=== PATIENT | female | born 1995 | race Caucasian/White ===

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

== ENCOUNTER → 2017-05-01 | Outpatient (CLI) | payer BC ==
[~2017-05-01] MED LIST changes: -AGM875 PO; -CEPH500C PO; +CITA20TA9 PO; -LPRIUNK
[2017-05-04 13:34] LABS: CHLAMYDIA TRACH RNA*** NOT DETECTED (NOT DETECTED); GC (NEIS GONORRHOEAE)RNA** NOT DETECTED (NOT DETECTED)
== END | disposition home or self-care (01) ==
LOC: C.LABSPEC 15:33
PROVIDERS: ATTEND Physician Assistant
DX: Z01.419 Encounter for gynecological examination (general) (routine) without abnormal findings (principal)

== ENCOUNTER → 2017-05-02 | Outpatient (CLI) | payer BC | END | disposition home or self-care (01) | LOC: C.LAB1850 10:01 | PROVIDERS: ATTEND Physician Assistant | DX: N91.2 Amenorrhea, unspecified (principal) ==

== ENCOUNTER → 2017-10-21 | Outpatient (CLI) | payer OTHER ==
[2017-10-21 12:19] LABS: HEMATOCRIT 40.1 % (37-47); HEMOGLOBIN 13.1 g/dL (12.0-16.0); MEAN CELL VOLUME 90.7 fL (80-100); MEAN CORPUSCULAR HEMOGLOBIN 29.6 pg (25-34); MEAN CORPUSCULAR HGB CONC 32.7 g/dl (32-36); MEAN PLATELET VOLUME 10.4 fL (7.4-10.4); PLATELET COUNT 378 K/uL (130-400); RED CELL DISTRIBUTION WIDTH CV 13.1 % (11.5-14.5); RED CELL DISTRIBUTION WIDTH SD 43.1 fL (36.4-46.3); WHITE BLOOD COUNT 9.18 K/uL (4.8-10.8)
[2017-10-21 12:47] LABS: FOLLICLE STIMULAT HORMONE 6.33 IU/L; LUTEINIZING HORMONE 3.93 IU/L; PROLACTIN 8.47 ng/mL
== END | disposition home or self-care (01) ==
LOC: C.LAB1850 09:45
PROVIDERS: ATTEND Physician Assistant
DX: N92.6 Irregular menstruation, unspecified (principal)

== ENCOUNTER 2017-11-07 10:30 | Emergency (ER) | payer OTHER ==
[~2017-11-07] VITALS: Ht 154.9 cm; Wt 145.5 kg
[2017-11-07 10:40] VITALS: TEMP 37; Ht 154.9 cm; Wt 145.5 kg
[2017-11-07] MEDS ORDERED: SODIUM CHLORIDE 0.9% 1000ML 1,000 ML IV STA (10:55)
[2017-11-07] MEDS ORDERED: LISD20CA PO (11:19)
[2017-11-07] MEDS ORDERED: FLUO20CA35 PO (11:19)
[2017-11-07] MEDS ORDERED: METF-384 PO (11:19)
[2017-11-07 11:23] LABS: BASO % 0.4 %; BASO ABS # 0.04 K/uL (0-0.2); EOS % 1.9 %; EOS ABS # 0.19 K/uL (0-0.5); HEMATOCRIT 40.3 % (37-47); HEMOGLOBIN 13.4 g/dL (12.0-16.0); IG# 0.03 K/uL (0.00-0.02); LYMPH % 22.9 %; LYMPH ABS # 2.32 K/uL (1.2-3.4); MEAN CELL VOLUME 89.8 fL (80-100); MEAN CORPUSCULAR HEMOGLOBIN 29.8 pg (25-34); MEAN CORPUSCULAR HGB CONC 33.3 g/dl (32-36); MEAN PLATELET VOLUME 10.2 fL (7.4-10.4); MONO % 6.6 %; MONO ABS # 0.67 K/uL (0.11-0.59); NEUT % 67.9 %; NEUT ABS # 6.86 K/uL (1.4-6.5); PLATELET COUNT 419 K/uL (130-400); RED CELL DISTRIBUTION WIDTH CV 13.1 % (11.5-14.5); RED CELL DISTRIBUTION WIDTH SD 43.1 fL (36.4-46.3); WHITE BLOOD COUNT 10.11 K/uL (4.8-10.8)
[2017-11-07 11:34] LABS: PTT PATIENT 25.2 SECONDS (21.0-31.0)
[2017-11-07 11:39] LABS: BLOOD UREA NITROGEN 17 mg/dl (7-18); CALCIUM 9.1 mg/dl (8.5-10.1); CARBON DIOXIDE 26 mmol/L (21-32); GLUCOSE 92 mg/dl (70-99); POTASSIUM 3.9 mmol/L (3.5-5.1); SODIUM 136 mmol/L (136-145)
[2017-11-07] MEDS ORDERED: KETOROLAC TROMETHAMINE 30 MG/ML VIAL IV STA (12:52)
--- NOTE | 2017-11-07 13:05 | DIAGNOSTIC IMAGING REPORT ---
PELVIC ULTRASOUND CLINICAL HISTORY: vaginal bleeding for 5 days 1 pad per hr bleeding COMPARISON STUDY: None. TECHNIQUE: Transabdominal and transvaginal sonography of the pelvis was performed. FINDINGS: This exam is compromised by suboptimal penetration. The uterus measures 7.6 x 4.1 x 4.2 cm. Endometrium measures 1.4 cm in thickness. The right ovary was not visualized. The left ovary measured 2.7 x 2.6 x 3.3 cm. There is color flow within the left ovary. A dominant follicle within the left ovary measuring 2.6 cm was noted. IMPRESSION: 1. Endometrial thickness of 1.4 cm which could be correlated with menstrual cycle. 2. Study compromised by suboptimal penetration. Nonvisualization of the right ovary. Electronically signed by: Camron Solomon M.D. 11/07/2017 1:03 PM Dictated Date/Time: 11/07/2017 1:02 PM
[2017-11-07 14:55] VITALS: BP 149/99; PULSE 98; O2SAT 98
--- NOTE | 2017-11-07 17:06 | EMERGENCY ROOM VISIT NOTE ---
History Report prepared by Dinah: Reese Lynch Under the Supervision of: Dr. Cash Miguel M.D. First contact with patient: 10:47 Chief Complaint: VAGINAL BLEEDING Stated Complaint: VAGINAL BLEEDING AND CRAMPING, LIGHT HEADED History of Present Illness The patient is a 21 year old female who presents to the Emergency Room with complaints of worsening vaginal bleeding beginning five days ago. She also complains of abdominal "cramping". Her pain radiates into her lower back. The patient states that she has been having constant vaginal bleeding for nearly a month (since Sep 17) until she saw her OBGYN last week. She was started on a Norethindrone taper which she finished five days ago. Her bleeding returned and worsened immediately after finishing the taper. The patient states that she is going through about a pad per hour. She was recently tested for STD, and both of which were negative. Source of History: patient Onset: About a month ago Position: other (vagina) Symptom Intensity: A pad per hour. Quality: other (bleeding) Timing: worsening Associated Symptoms: + abdominal pain ("cramping"), + back pain (low) Review of Systems See HPI for pertinent positives and negatives. A total of ten systems were reviewed and were otherwise negative. Past Medical & Surgical Medical Problems: (1) Depression (2) PCOS (polycystic ovarian syndrome) Family History FH: cancer FH: diabetes mellitus FH: hypertension Social History Smoking Status: Never Smoker Alcohol Use: none Marital Status: single Housing Status: lives with family Occupation Status: employed Current/Historical Medications Scheduled Fluoxetine (Prozac), 20 MG PO DAILY Lisdexamfetamine Dimesylate (Vyvanse), 20 MG PO DAILY Metformin Hcl (Glucophage), 1,000 MG PO BID Allergies Coded Allergies: No Known Allergies (Unverified , NONE, 11/07/17) Physical Exam Vital Signs Date Time Temp Pulse Resp B/P (MAP) Pulse Ox O2 Delivery O2 Flow Rate FiO2 11/07/17 14:55 98 20 149/99 98 11/07/17 13:55 106 20 167/85 98 Room Air 11/07/17 12:46 96 20 175/124 93 Room Air 11/07/17 10:40 37.0 96 18 148/92 96 Room Air Physical Exam Physical Exam GENERAL: She is oriented to person, place, and time. She appears well- developed and well-nourished. She does not appear distressed. ____ HENT: Exam performed. Head: Normocephalic and atraumatic. Right Ear: External ear normal. No mastoid tenderness. Left Ear: External ear normal. No mastoid tenderness. Mouth/Throat: The oropharynx is clear and moist. No trismus in the jaw. No dental abscesses or uvula swelling. No oropharyngeal exudate or tonsillar abscesses. ____ EYES: Conjunctivae and EOM are normal. Pupils are equal, round, and reactive to light. Right eye exhibits no discharge. Left eye exhibits no discharge. No scleral icterus. ____ NECK: Normal range of motion. Neck supple. No JVD present. No spinous process tenderness present. No carotid bruit present. No rigidity. No tracheal deviation and normal range of motion present. No Brudzinski's sign and no Kernig 's sign noted. ____ CV: Normal rate, regular rhythm, normal heart sounds and intact distal pulses. There is no peripheral edema. Palpable radial pulses bue. ____ PULM/CHEST: Effort normal and breath sounds normal. No respiratory distress. No stridor. She has no wheezes. She has no rales. Chest Wall: She exhibits no tenderness. ____ ABD: The abdomen is soft and obese (limiting exam). Bowel sounds are normal. She has no distension. There is suprapubic, RLQ and LLQ tenderness on palpation. There is no rebound, no guarding, no Cee's sign and no tenderness at McBurney's point. Rovsig negative MUSC/SKEL: Normal range of motion. There is no peripheral edema, tenderness or deformity. LYMPH: No cervical adenopathy. ____ NEURO: She is alert and oriented to person, place, and time. She has normal strength. No cranial nerve deficit or sensory deficit. Coordination and gait normal. GCS eye subscore is 4. GCS verbal subscore is 5. GCS motor subscore is 6. Cerebellar tests wnl. ____ SKIN: Skin is warm and dry. She is not diaphoretic. ____ PSYCH: She has a normal mood and affect. Her behavior is normal. Judgment and thought content normal. ____ Medical Decision & Procedures ER Provider Diagnostic Interpretation: Radiology results as stated below per my review and radiologist interpretation: PELVIC ULTRASOUND FINDINGS: This exam is compromised by suboptimal penetration. The uterus measures 7.6 x 4.1 x 4.2 cm. Endometrium measures 1.4 cm in thickness. The right ovary was not visualized. The left ovary measured 2.7 x 2.6 x 3.3 cm. There is color flow within the left ovary. A dominant follicle within the left ovary measuring 2.6 cm was noted. IMPRESSION: 1. Endometrial thickness of 1.4 cm which could be correlated with menstrual cycle. 2. Study compromised by suboptimal penetration. Nonvisualization of the right ovary. Electronically signed by: Camron Solomon M.D. 11/07/2017 1:03 PM Laboratory Results 11/07/17 11:15 Red Blood Count 4.49, Mean Corpuscular Volume 89.8, Mean Corpuscular Hemoglobin 29.8, Mean Corpuscular Hemoglobin Concent 33.3, Mean Platelet Volume 10.2, Neutrophils (%) (Auto) 67.9, Lymphocytes (%) (Auto) 22.9, Monocytes (%) (Auto) 6.6, Eosinophils (%) (Auto) 1.9, Basophils (%) (Auto) 0.4, Neutrophils # (Auto) 6.86, Lymphocytes # (Auto) 2.32, Monocytes # (Auto) 0.67, Eosinophils # (Auto) 0.19, Basophils # (Auto) 0.04 11/07/17 11:15 Test 11/07/17 11:10 11/07/17 11:15 Urine Color RED Urine Appearance SL CLOUDY (CLEAR) Urine pH 5.5 (4.5-7.5) Urine Specific [place] >= 1.030 (1.000-1.030) Urine Protein 1+ (NEG) Urine Glucose (UA) NEG (NEG) Urine Ketones NEG (NEG) Urine Occult Blood 3+ (NEG) Urine Nitrite NEG (NEG) Urine Bilirubin NEG (NEG) Urine Urobilinogen NEG (NEG) Urine Leukocyte Esterase TRACE (NEG) Urine RBC >30 /hpf (0-4) Urine WBC 1-5 /hpf (0-5) Urine Epithelial Cells 0-5 /lpf (0-5) Urine Bacteria NEG (NEG) Urine Test NEG (NEG) White Blood Count 10.11 K/uL (4.8-10.8) Red Blood Count 4.49 M/uL (4.2-5.4) Hemoglobin 13.4 g/dL (12.0-16.0) Hematocrit 40.3 % (37-47) Mean Corpuscular Volume 89.8 fL (80-100) Mean Corpuscular Hemoglobin 29.8 pg (25-34) Mean Corpuscular Hemoglobin Concent 33.3 g/dl (32-36) Platelet Count 419 K/uL (130-400) Mean Platelet Volume 10.2 fL (7.4-10.4) Neutrophils (%) (Auto) 67.9 % Lymphocytes (%) (Auto) 22.9 % Monocytes (%) (Auto) 6.6 % Eosinophils (%) (Auto) 1.9 % Basophils (%) (Auto) 0.4 % Neutrophils # (Auto) 6.86 K/uL (1.4-6.5) Lymphocytes # (Auto) 2.32 K/uL (1.2-3.4) Monocytes # (Auto) 0.67 K/uL (0.11-0.59) Eosinophils # (Auto) 0.19 K/uL (0-0.5) Basophils # (Auto) 0.04 K/uL (0-0.2) RDW Standard Deviation 43.1 fL (36.4-46.3) RDW Coefficient of Variation 13.1 % (11.5-14.5) Immature Granulocyte % (Auto) 0.3 % Immature Granulocyte # (Auto) 0.03 K/uL (0.00-0.02) Prothrombin Time 10.2 SECONDS (9.0-12.0) Prothromb Time International Ratio 1.0 (0.9-1.1) Activated Partial Thromboplast Time 25.2 SECONDS (21.0-31.0) Partial Thromboplastin Ratio 1.0 Anion Gap 5.0 mmol/L (3-11) Est Creatinine Clear Calc Drug Dose 206.8 ml/min Estimated GFR () > 150.0 Estimated GFR (Non- 132.1 BUN/Creatinine Ratio 27.6 (10-20) Calcium Level 9.1 mg/dl (8.5-10.1) Laboratory results reviewed by me Medications Administered Medications (Trade) Dose Ordered Sig/[facility] Route Start Time Stop Time Status Last Admin Dose Admin Sodium Chloride 1,000 ml @ 999 mls/hr Q1H1M STAT IV 11/07/17 10:55 11/07/17 11:55 DC 11/07/17 11:15 999 MLS/HR Ketorolac Tromethamine (Toradol Inj) 15 mg NOW STAT IV 11/07/17 12:52 11/07/17 12:54 DC 11/07/17 13:01 15 MG ED Course 1053: The patient was evaluated in room C12B. A complete history and physical exam was performed. 1055: Ordered Sodium Chloride 1000 ml @ 999 mls/hr IV. 1252: Ordered Toradol Inj 15 mg IV. 1414: I conducted a pelvic exam on the patient. Dry blood clots noted in the vaginal vault. No active bleeding appreciated. The cervical os is closed. 1427: I spoke with Dr. Rainey of [facility]. See the consult section for details. Discussed the patient's case. Dr. Rainey recommends that the patient be started on an oral contraceptive to control her symptoms. She recommends follow up in one week. I reexamined the patient. No pain on palpation of the abdomen. I explained to her that her OBGYN would like to start her on control for management of her symptoms. The patient states that she was already told this, and is supposed to start oral control next week. She has a prescription written already. She states that her OBGYN warned her that there could be rebound bleeding after her the Norethindrone taper. The patient will begin taking her oral contraceptive next week. DISCHARGE - Plan of care discussed with patient and questions answered. The patient was given both verbal and printed discharge instructions. The patient verbalized understanding and ability to comply. The patient is to seek outpatient follow up as noted in the discharge instructions. The patient verbalized understanding and ability to comply. The patient is discharged in stable condition. The patient was instructed to return for worsening symptoms. Medical Decision 1414: I conducted a pelvic exam on the patient. Dry blood clots noted in the vaginal vault. No active bleeding appreciated. The cervical os is closed. 1427: I spoke with Dr. Rainey of [facility]. See the consult section for details. 1435: Vital signs stable. Labs and imaging within normal limits. I reexamined the patient. I explained to her that her OBGYN would like to start her on control for management of her symptoms. The patient states that she was already told this, and is supposed to start oral control next week. She has a prescription written already. She states that her OBGYN warned her that there could be rebound bleeding after her the Norethindrone taper. The patient will begin taking her oral contraceptive next week. DISCHARGE - Plan of care discussed with patient and questions answered. The patient was given both verbal and printed discharge instructions. The patient verbalized understanding and ability to comply. The patient is to seek outpatient follow up as noted in the discharge instructions. The patient verbalized understanding and ability to comply. The patient is discharged in stable condition. The patient was instructed to return for worsening symptoms. Medication Reconcilliation Current Medication List: was personally reviewed by me Blood Pressure Screening Patient's blood pressure: Elevated blood pressure Blood pressure disposition: Referred to PCP Consults Time Called: 1422 Consulting Physician: Dr. Rainey - [facility] Returned Call: 1421 Discussed the patient's case. Dr. Rainey recommends that the patient be started on an oral contraceptive to control her symptoms. She recommends follow up in one week. Impression Primary Impression: Dysfunctional uterine bleeding Scribe Attestation The scribe's documentation has been prepared under my direction and personally reviewed by me in its entirety. I confirm that the note above accurately reflects all work, treatment, procedures, and medical decision making performed by me. The chart was completed utilizing [employer] Speech voice recognition software. Grammatical errors, random word insertions, pronoun errors, and incomplete sentences are an occasional consequence of this system due to software limitations, ambient noise, and hardware issues. Any formal questions or concerns about the content, text, or information contained within the body of this dictation should be directly addressed to the physician for clarification. Departure Information Dispostion Home / Self-Care Referrals No Doctor, Assigned (PCP) Forms HOME CARE DOCUMENTATION FORM, IMPORTANT VISIT INFORMATION, WORK / SCHOOL INSTRUCTIONS Patient Instructions ED Bleed Irregular Vaginal, My [facility] Additional Instructions Take the oral contraceptive prescribed by her OUTBOUND SUPERVISOR. Return to the emergency department if you develop fever greater than 100.4, lose consciousness, continued to have heavy bleeding, develop blood in your stool.
== END 2017-11-07 14:55 | disposition home or self-care (01) ==
LOC: C.EDB 10:32 → C.EDC 14:55
DX: N93.9 Abnormal uterine and vaginal bleeding, unspecified (principal); F32.9 Major depressive disorder, single episode, unspecified; E28.2 Polycystic ovarian syndrome; Z83.3 Family history of diabetes mellitus; Z82.49 Family history of ischemic heart disease and other diseases of the circulatory system

== ENCOUNTER → 2018-02-20 | Outpatient (CLI) | payer OTHER ==
[~2018-02-20] MED LIST changes: -CITA20TA9 PO; +FLUO20CA35 PO; +LISD20CA PO; +METF-384 PO
[2018-02-20 10:11] LABS: HEMATOCRIT 38.7 % (37-47); HEMOGLOBIN 12.6 g/dL (12.0-16.0); MEAN CELL VOLUME 88.6 fL (80-100); MEAN CORPUSCULAR HEMOGLOBIN 28.8 pg (25-34); MEAN CORPUSCULAR HGB CONC 32.6 g/dl (32-36); MEAN PLATELET VOLUME 10.7 fL (7.4-10.4); PLATELET COUNT 421 K/uL (130-400); RED CELL DISTRIBUTION WIDTH CV 13.5 % (11.5-14.5); RED CELL DISTRIBUTION WIDTH SD 43.6 fL (36.4-46.3); WHITE BLOOD COUNT 11.03 K/uL (4.8-10.8)
[2018-02-20 10:48] LABS: CREATININE 0.56 mg/dl (0.60-1.20)
== END | disposition home or self-care (01) ==
LOC: C.LAB1850 09:06
PROVIDERS: ATTEND Student in an Organized Health Care Education/Training Program
DX: T88.7XXA Unspecified adverse effect of drug or medicament, initial encounter (principal); X58.XXXA Exposure to other specified factors, initial encounter; T38.3X5A Adverse effect of insulin and oral hypoglycemic [antidiabetic] drugs, initial encounter; N92.0 Excessive and frequent menstruation with regular cycle